=== PATIENT | female | born 1990 | race Caucasian/White ===

== ENCOUNTER 2025-06-28 07:42 | Observation (INO) | payer OTHER, SELFPAY ==
[2025-06-28 07:46] VITALS: BP 111/72; BMI 32.3
[2025-06-28 08:22] LABS: Hematocrit 34.1 % (37.0-47.0); Hemoglobin 11.5 g/dL (12.0-16.0); Mean Corp Hgb Conc. 33.7 g/dL (33.0-37.0); Mean Corpuscular Volume 85.0 fL (81.0-99.0); Platelet Count 155 10^3/uL (130-400); Red Cell Dist. Width 13.3 % (11.5-14.5)
[2025-06-28 08:30] LABS: INR 1.09; PT 14.4 Sec (11.4-14.6)
[2025-06-28 08:31] LABS: APTT 27.6 Sec (23.4-35.0); Fibrinogen 520 MG/DL (199-459)
== END 2025-06-28 11:55 | disposition home or self-care (01) ==
LOC: LDRP 07:42
PROVIDERS: ADMITTING PHYSICIAN Student in an Organized Health Care Education/Training Program
DX: O46.93 Antepartum hemorrhage, unspecified, third trimester (principal); Z3A.29 29 weeks gestation of pregnancy; O09.523 Supervision of elderly multigravida, third trimester; O99.283 Endocrine, nutritional and metabolic diseases complicating pregnancy, third trimester; E04.1 Nontoxic single thyroid nodule; O99.343 Other mental disorders complicating pregnancy, third trimester; F41.9 Anxiety disorder, unspecified; F32.A Depression, unspecified
CPT/HCPCS: 76815; 85027; 85384; 85460; 85610; 85730; 86850; 86900; 86901; G0378

== ENCOUNTER → 2025-08-24 12:03 | Outpatient (REF) | payer OTHER, SELFPAY | LOC: PNTC 12:03 | PROVIDERS: ATTENDING PHYSICIAN Obstetrics & Gynecology | DX: O36.8331 Maternal care for abnormalities of the fetal heart rate or rhythm, third trimester, fetus 1 (principal) | CPT/HCPCS: 59025; 76815 ==

== ENCOUNTER 2025-09-06 19:25 | Inpatient (IN) | payer OTHER, SELFPAY ==
[2025-09-06 19:35] VITALS: BP 137/91; BMI 35.1
[2025-09-06 20:16] LABS: Hematocrit 33.5 % (37.0-47.0); Hemoglobin 11.6 g/dL (12.0-16.0); Mean Corp Hgb Conc. 34.6 g/dL (33.0-37.0); Mean Corpuscular Volume 81.1 fL (81.0-99.0); Nucleated Red Blood Cells % 0 %; Platelet Count 163 10^3/uL (130-400); Red Cell Dist. Width 13.9 % (11.5-14.5)
[2025-09-06] MEDS: CYTOTEC 25 MICROGRAM VAG (20:46)
[2025-09-07] MEDS: CYTOTEC 50 MICROGRAM PO (00:55)
[2025-09-07] MEDS: LR 1000 IV ×2 (01:22→04:00)
--- NOTE | 2025-09-07 02:31 | DOWNTIME ---
There was a [employer] Downtime on 09/07/2025 from 0100 to 09/07/2025 at 0215. Downtime documentation of patient's care, including medication administrations, has been reconciled in the electronic record per guidelines. Refer to the
patient's paper chart under the miscellaneous tab to see printed paper medication records and downtime forms.
[2025-09-07] MEDS: FENTANYL/BUPIVACAINE 100 EPIDURAL (03:43)
[2025-09-07] MEDS: SUBLIMAZE 100 MCG EPIDURAL (03:43)
[2025-09-07] MEDS: PITOCIN 30 UNITS/NSS 500 ML IV (06:05)
[2025-09-07] MEDS: COLACE 100 MG PO ×2 (08:15→19:54)
[2025-09-07] MEDS: PRENATAL PLUS 1 TABLET PO (08:15)
[2025-09-07] MEDS: MOTRIN 600 MG PO ×2 (13:59→23:40)
[2025-09-07] MEDS: TYLENOL 650 MG PO (17:09)
[2025-09-07] MEDS: ZOLOFT 100 MG PO (23:13)
[2025-09-08 05:29] LABS: Hematocrit 31.8 % (37.0-47.0); Hemoglobin 10.2 g/dL (12.0-16.0)
[2025-09-08] MEDS: FEOSOL 325 MG PO (08:15)
[2025-09-08] MEDS: COLACE 100 MG PO (08:15)
[2025-09-08] MEDS: PRENATAL PLUS 1 TABLET PO (08:15)
[2025-09-08] MEDS: MOTRIN 600 MG PO (08:29)
[2025-09-08] MEDS: TYLENOL 650 MG PO (08:29)
[2025-09-09 13:33] LABS: Syphilis/T. pallidum Ab Reflex Negative (Negative)
== END 2025-09-08 15:04 | disposition home or self-care (01) | DRG 807 ==
LOC: LDRP 19:25
PROVIDERS: ADMITTING PHYSICIAN Obstetrics & Gynecology
PROC: 3E0P7VZ Introduction of Hormone into Female Reproductive, Via Natural or Artificial Opening (ICD-10-PCS; 2025-09-06)
PROC: 10907ZC Drainage of Amniotic Fluid, Therapeutic from Products of Conception, Via Natural or Artificial Opening (ICD-10-PCS; 2025-09-07)
PROC: 0KQM0ZZ Repair Perineum Muscle, Open Approach (ICD-10-PCS; 2025-09-07)
PROC: 10E0XZZ Delivery of Products of Conception, External Approach (ICD-10-PCS; 2025-09-07)
DX: O69.81X0 Labor and delivery complicated by cord around neck, without compression, not applicable or unspecified (principal); Z37.0 Single live birth; Z3A.39 39 weeks gestation of pregnancy; O70.1 Second degree perineal laceration during delivery; O77.0 Labor and delivery complicated by meconium in amniotic fluid
CPT/HCPCS: 85014; 85018; 85025; 86780; 86850; 86900; 86901; 87491; 87591